=== PATIENT | female | born 1985 | race Caucasian/White ===

== ENCOUNTER 2018-08-06 21:08 | Emergency (ER) | payer BC ==
[2018-08-06] MEDS: CYCLOBENZAPRINE 10 MG TAB PO (23:43)
[2018-08-06] MEDS: DEXAMETHASONE 10 MG/ML 1 ML INJ IM (23:44)
[2018-08-06] MEDS: KETOROLAC 60 MG INJ IM (23:44)
[2018-08-07] MEDS: HYDROCODONE/APAP (5/325) TAB PO (00:38)
== END 2018-08-07 00:41 | disposition home or self-care (01) ==
LOC: FTE 08-07 00:41
DX: S13.9XXA Sprain of joints and ligaments of unspecified parts of neck, initial encounter (principal); M62.838 Other muscle spasm; V49.49XA Driver injured in collision with other motor vehicles in traffic accident, initial encounter
CPT/HCPCS: 81025; 96372; 99284-25